=== PATIENT | male | born 1950 | race Caucasian/White ===

== ENCOUNTER 2017-08-15 20:21 | Inpatient (IN) | payer OTHER ==
--- NOTE | 2017-08-15 20:35 | CPEKG ---
Heart Rate: 105 RR Interval: 571 P-R Interval: 164 QRSD Interval: 98 QT Interval: 360 QTC Interval: 476 P [place]: 59 QRS [place]: -84 T Wave [place]: 44 EKG Severity - ABNORMAL ECG - EKG Impression: SINUS TACHYCARDIA EKG Impression: MARKEDLY POSTERIOR QRS AXIS EKG Impression: ABNRM R PROG, CONSIDER ASMI OR LEAD PLACEMENT EKG Impression: BORDERLINE PROLONGED QT INTERVAL EKG Impression: Inferior and lateral ST depression Electronically Signed By: Gregorio Howard 15-Aug-2017 20:41:02
[2017-08-15] MEDS ORDERED: ASPIRIN 81 MG CHEWABLE TAB PO ONE (20:59)
[2017-08-15] MEDS ORDERED: NS 1,000 ML IV ONE (20:59)
--- NOTE | 2017-08-15 21:04 | EDPHY ---
H & P Stated Complaint: sent from PCP due to abnormal EKG, left shoulder pain since July Time Seen by Provider: 08/15/17 20:38 HPI/ROS: CHIEF COMPLAINT: Bloating HISTORY OF PRESENT ILLNESS: Patient is a 67-year-old man who has history of 3 vessel CABG in 2006. His states that he has not seen a doctor since that time and never followed up. He complains that over the last 2-3 months he has had significant bloating and abdominal distention especially after eating. He states that it hurts him when he bends over and makes it difficult to sleep. He states that if he is able to sneeze or he goes to the bathroom and dry heaves that his symptoms improved. He states that he has been having normal nonbloody bowel movements. No diarrhea. No fever. No vomiting. He states the abdominal discomfort is primarily a pressure sensation. He denies chest pain but does sometimes have shoulder pain. He also complains occasionally feeling lightheaded and sweaty when he is having one of these severe episodes. His states that sometimes his blood pressure will drop to 90 systolic during these episodes. He has not had 1 of these episodes today. He saw his primary doctor today who obtained an EKG. The patient has ST depression in his inferior and lateral leads. They could not find any old ones for comparison and so sent him here to the ER for the abnormal EKG. REVIEW OF SYSTEMS: Constitutional: denies: chills, fever, recent illness, recent injury EENTM: denies: blurred vision, double vision, nose congestion Respiratory: denies: cough, shortness of breath Cardiac: denies: chest pain, irregular heart rate, lightheadedness, palpitations Gastrointestinal/Abdominal: See HPI denies: diarrhea, nausea, vomiting, blood streaked stools Genitourinary: denies: dysuria, frequency, hematuria, pain Musculoskeletal: denies: joint pain, muscle pain Skin: denies: lesions, rash, jaundice, bruising Neurological: denies: headache, numbness, paresthesia, tingling, dizziness, weakness Hematologic/Lymphatic: denies: blood clots, easy bleeding, easy bruising Immunologic/allergic: denies: HIV/AIDS, transplant EXAM: GENERAL: Well-appearing, well-nourished and in no acute distress. HEAD: Atraumatic, normocephalic. EYES: Pupils equal round and reactive to light, extraocular movements intact, sclera anicteric, conjunctiva are normal. ENT: TMs normal, nares patent, oropharynx clear without exudates. Moist mucous membranes. NECK: Normal range of motion, supple without lymphadenopathy or JVD. LUNGS: Breath sounds clear to auscultation bilaterally and equal. No wheezes rales or rhonchi. HEART: Regular rate and rhythm without murmurs, rubs or gallops. ABDOMEN: Soft, nontender, normoactive bowel sounds. No guarding, no rebound. No masses appreciated. BACK: No CVA tenderness, no spinal tenderness, step-offs or deformities EXTREMITIES: Normal range of motion, no pitting or edema. No clubbing or cyanosis. NEUROLOGICAL: Cranial nerves II through XII grossly intact. Normal speech, normal gait. 5/5 strength, normal movement in all extremities, normal sensation PSYCH: Normal mood, normal affect. SKIN: Warm, dry, normal turgor, no visible rashes or lesions. Source: Patient Exam Limitations: No limitations - Personal History Current Tetanus/Diphtheria Vaccine: No Current Tetanus Diphtheria and Acellular Pertussis (TDAP): No - Medical/Surgical History Hx Asthma: No Hx Chronic Respiratory Disease: No Hx Diabetes: No Hx Cardiac Disease: Yes Hx Renal Disease: No Hx Cirrhosis: No Hx Alcoholism: No Hx HIV/AIDS: No Hx Splenectomy or Spleen Trauma: No Other PMH: bipass - Family History Significant Family History: No pertinent family hx - Social History Smoking Status: Never smoked Alcohol Use: None Constitutional: Initial Vital Signs Temperature (C) 37.7 C 08/15/17 20:23 Heart Rate 107 H 08/15/17 20:23 Respiratory Rate 18 08/15/17 20:23 Blood Pressure 146/93 H 08/15/17 20:23 O2 Sat (%) 95 08/15/17 20:23 O2 Delivery Mode Room Air Allergies/Adverse Reactions: No Known Allergies Allergy (Unverified 08/15/17 20:26) Home Medications: Medication Instructions Recorded Herbals/Supplements -Info Only 1 ea PO DAILY 08/15/17 Ibuprofen [Motrin (*)] 400 - 600 mg PO Q6H PRN 08/15/17 Multivitamins [Multivitamin (*)] 1 each PO DAILY 08/15/17 Medical Decision Making - Diagnostics EKG Interpretation: An EKG obtained and was read and documented in trace view. Please see trace view for full reading and report. Sinus tachycardia, inferior and lateral ST depression, similar to previous EKG done at the clinic today. Imaging Results: Imaging Impressions Chest X-Ray 08/15/17 21:13 Impression: Nothing acute on this single AP portable x-ray. ED Course/Re-evaluation: 9:15 p.m. the patient's troponin is significantly elevated. I canceled the angio because anticipate he will CT contrast with a catheterization. He is currently asymptomatic. He states his last episode of pain was on Sunday. 9:20 p.m. I discussed the case with Dr. Sal Murillo who will consult and recommends catheterization tomorrow. He recommends heparin admission to the hospital service. 9:30 p.m. I discussed the case with Dr. Valencia who will admit. Differential Diagnosis: Partial list of the Differential diagnosis considered include but were not limited to; acute coronary disease, gastrointestinal disease, obstruction and although unlikely based on the history and physical exam, I also considered ischemia, aneurysm, dissection. Critical Care Time: Critical care time spent by me, Dr. Howard exclusive with this patient was 35 minutes, exclusive of the PA time exclusive of procedures. The organ system that was at risk was cardiovascular and I gave medications, diagnosis, consultation and admission to prevent worsening of the patient's condition - Data Points Laboratory Results: Laboratory Results 08/15/17 20:40 08/15/17 20:40 08/15/17 08/15/17 08/15/17 21:00 20:40 20:40 WBC RBC Hgb Hct MCV MCH MCHC RDW Plt Count MPV Neut % (Auto) Lymph % (Auto) [place] % (Auto) Eos % (Auto) Baso % (Auto) Nucleat RBC Rel Count Absolute Neuts (auto) Absolute Lymphs (auto) Absolute Monos (auto) Absolute Eos (auto) Absolute Basos (auto) Absolute Nucleated RBC Immature Gran % Immature Gran # RBC/WBC/PLT Morphology Platelet Estimate PT INR APTT Sodium 139 mEq/L mEq/L (135-145) Potassium 4.0 mEq/L mEq/L (3.3-5.0) Chloride 104 mEq/L mEq/L (97-110) Carbon Dioxide 24 mEq/l mEq/l (22-31) Anion Gap 11 mEq/L mEq/L (8-16) BUN 16 mg/dL mg/dL (7-23) Creatinine 0.7 mg/dL mg/dL (0.7-1.3) Estimated GFR > 60 Glucose 125 mg/dL H mg/dL (70-100) Calcium 8.8 mg/dL mg/dL (8.5-10.4) Total Bilirubin 0.4 mg/dL mg/dL (0.1-1.4) Conjugated Bilirubin 0.4 mg/dL mg/dL (0.0-0.5) Unconjugated Bilirubin 0.0 mg/dL mg/dL (0.0-1.1) AST 52 IU/L IU/L (17-59) ALT 70 IU/L IU/L (21-72) Alkaline Phosphatase 138 IU/L H IU/L (38-126) POC Troponin I 1.59 ng/mL H ng/mL (0.00-0.08) Troponin I 1.600 ng/mL H ng/mL (0.000-0.034) Total Protein 6.4 g/dL g/dL (6.3-8.2) Albumin 3.6 g/dL g/dL (3.5-5.0) Lipase 39 IU/L IU/L (23-300) 08/15/17 08/15/17 20:40 20:40 WBC 11.65 10^3/uL H 10^3/uL (3.80-9.50) RBC 4.21 10^6/uL L 10^6/uL (4.40-6.38) Hgb 12.9 g/dL L g/dL (13.7-17.5) Hct 38.4 % L % (40.0-51.0) MCV 91.2 fL fL (81.5-99.8) MCH 30.6 pg pg (27.9-34.1) MCHC 33.6 g/dL g/dL (32.4-36.7) RDW 12.8 % % (11.5-15.2) Plt Count 340 10^3/uL 10^3/uL (150-400) MPV 8.9 fL fL (8.7-11.7) Neut % (Auto) 68.8 % % (39.3-74.2) Lymph % (Auto) 15.1 % % (15.0-45.0) [place] % (Auto) 13.7 % H % (4.5-13.0) Eos % (Auto) 1.3 % % (0.6-7.6) Baso % (Auto) 0.6 % % (0.3-1.7) Nucleat RBC Rel Count 0.0 % % (0.0-0.2) Absolute Neuts (auto) 8.02 10^3/uL H 10^3/uL (1.70-6.50) Absolute Lymphs (auto) 1.76 10^3/uL 10^3/uL (1.00-3.00) Absolute Monos (auto) 1.60 10^3/uL H 10^3/uL (0.30-0.80) Absolute Eos (auto) 0.15 10^3/uL 10^3/uL (0.03-0.40) Absolute Basos (auto) 0.07 10^3/uL 10^3/uL (0.02-0.10) Absolute Nucleated RBC 0.00 10^3/uL 10^3/uL (0-0.01) Immature Gran % 0.5 % % (0.0-1.1) Immature Gran # 0.06 10^3/uL 10^3/uL (0.00-0.10) RBC/WBC/PLT Morphology TNP Platelet Estimate TNP PT 13.6 SEC SEC (12.0-15.0) INR 1.02 (0.83-1.16) APTT 27.0 SEC SEC (23.0-38.0) Sodium Potassium Chloride Carbon Dioxide Anion Gap BUN Creatinine Estimated GFR Glucose Calcium Total Bilirubin Conjugated Bilirubin Unconjugated Bilirubin AST ALT Alkaline Phosphatase POC Troponin I Troponin I Total Protein Albumin Lipase Medications Given: Discontinued Medications Aspirin (Aspirin) 324 mg PO EDNOW ONE Stop: 08/15/17 21:00 Last Admin: 08/15/17 21:05 Dose: 243 mg Heparin Sodium (Porcine) (Heparin Injection) 0 unit IVP EDNOW ONE PRN Reason: Protocol Stop: 08/15/17 21:23 Last Admin: 08/15/17 22:35 Dose: 4,100 unit Sodium Chloride (Ns) 1,000 mls @ 0 mls/hr IV EDNOW ONE; Wide Open PRN Reason: Protocol Stop: 08/15/17 21:00 Last Admin: 08/15/17 21:05 Dose: 1,000 mls Heparin Sodium (Porcine) (Heparin 50 Units/Ml (Premix)) 500 mls @ 0 mls/hr IV EDNOW ONE; Per Protocol PRN Reason: Protocol Stop: 08/15/17 21:23 Last Admin: 08/15/17 22:37 Dose: 500 mls Point of Care Test Results: Chemistry 08/15/17 21:00 POC Troponin I 1.59 ng/mL H ng/mL (0.00-0.08) Departure - Departure Disposition: [facility] Inpatient Acute Clinical Impression: Chest pain Qualifiers: Chest pain type: unspecified Qualified Code(s): R07.9 - Chest pain, unspecified Condition: Fair
[2017-08-15] MEDS ORDERED: IOPAMIDOL (ISOVUE 370) 100 ML BTL IV ONE (21:06)
[2017-08-15 21:07] LABS: PLATELET COUNT 340 10^3/uL (150-400)
[2017-08-15 21:16] LABS: INR 1.02 (0.83-1.16); PROTIME(PATIENT) 13.6 SEC (12.0-15.0)
[2017-08-15] MEDS ORDERED: HEPARIN 10,000 UNIT/10 ML MDV (1,000 UNIT/ML) IVP ONE ×2 (21:22→22:10)
[2017-08-15] MEDS ORDERED: HEPARIN/DEXTROSE 500 ML IV ONE (21:22)
[2017-08-15] MEDS ORDERED: HEPARIN 10,000 UNIT/10 ML MDV (1,000 UNIT/ML) IVP PRN (22:10)
[2017-08-15] MEDS ORDERED: ONDANSETRON DISINTEGRATING 4 MG TAB PO PRN (22:13)
[2017-08-15] MEDS ORDERED: ONDANSETRON 4 MG/2 ML VIAL IVP PRN (22:13)
[2017-08-15] MEDS ORDERED: ACETAMINOPHEN 325 MG TAB PO PRN (22:13)
[2017-08-15] MEDS ORDERED: HEPARIN/DEXTROSE 500 ML IV SCH (22:15)
[2017-08-15] MEDS ORDERED: NS 1,000 ML IV SCH (22:15)
--- NOTE | 2017-08-15 22:20 | PDGENHP ---
History and Physical - Chief Complaint chest pressure, bloating - History of Present Illness This is a 67 yo male who has history of 3 vessel CABG in 2006. His states that he has not seen a doctor since that time and never followed up. He complains that over the last 2-3 months he has had significant bloating and abdominal distention especially after eating. He states that it hurts him when he bends over and makes it difficult to sleep. He states that if he is able to sneeze or he goes to the bathroom and dry heaves that his symptoms improved. He states that he has been having normal nonbloody bowel movements. No diarrhea. No fever. No vomiting. He has also been having chest discomfort and Dyspnea and his made him go to a PCP today. At the PCPs office he was found to have ST depression in the inferior and lateral leads and he was sent to the ER. Here the ST depressions are confirmed and troponin is elevated. Cardiology is aware and Heparin has been started. Aspirin was given. He denies fever, leg swelling, focal weakness, diarrhea. : No limitations PMHx: 3 vessel CABG in 2006, CAD Soc Hx: non smoker FmHx: non contributory EKG per above, personally reviewed and interpreted CXR: no acute abnormalities History Information - Allergies/Home Medication List Allergies/Adverse Reactions: No Known Allergies Allergy (Unverified 08/15/17 20:26) Home Medications: Herbals/Supplements -Info Only 1 ea PO DAILY 08/15/17 [Last Taken 08/14/17] Ibuprofen [Motrin (*)] 400 - 600 mg PO Q6H PRN 08/15/17 [Last Taken 08/15/17 09: 00] Multivitamins [Multivitamin (*)] 1 each PO DAILY 08/15/17 [Last Taken 08/15/17] I have personally reviewed and updated: medical history, social history - Social History Smoking Status: Never smoked Alcohol Use: None Review of Systems Review of Systems: ROS: 10pt was reviewed & negative except for what was stated in HPI & below Physical Exam Physical Exam: Temp Pulse Resp BP Pulse Ox 37.7 C 102 H 20 135/83 H 94 08/15/17 20:23 08/15/17 21:08 08/15/17 21:08 08/15/17 21:08 08/15/17 21:08 Constitutional: no apparent distress Eyes: PERRL, EOMI Ears, Nose, Mouth, Throat: moist mucous membranes, hearing normal, No dry mucous membranes Cardiovascular: regular rate and rhythym, No edema Respiratory: no respiratory distress, no rales or rhonchi, clear to auscultation Gastrointestinal: normoactive bowel sounds, soft, non-tender abdomen Skin: warm Musculoskeletal: full muscle strength Neurologic: AAOx3 Psychiatric: interacting appropriately, not anxious, not encephalopathic Lymph, Heme, Immunologic: No petechiae Lab Data & Imaging Review 08/15/17 20:40 08/15/17 20:40 WBC 11.65 10^3/uL (3.80-9.50) H 08/15/17 20:40 RBC 4.21 10^6/uL (4.40-6.38) L 08/15/17 20:40 Hgb 12.9 g/dL (13.7-17.5) L 08/15/17 20:40 Hct 38.4 % (40.0-51.0) L 08/15/17 20:40 MCV 91.2 fL (81.5-99.8) 08/15/17 20:40 MCH 30.6 pg (27.9-34.1) 08/15/17 20:40 MCHC 33.6 g/dL (32.4-36.7) 08/15/17 20:40 RDW 12.8 % (11.5-15.2) 08/15/17 20:40 Plt Count 340 10^3/uL (150-400) 08/15/17 20:40 MPV 8.9 fL (8.7-11.7) 08/15/17 20:40 Neut % (Auto) 68.8 % (39.3-74.2) 08/15/17 20:40 Lymph % (Auto) 15.1 % (15.0-45.0) 08/15/17 20:40 [place] % (Auto) 13.7 % (4.5-13.0) H 08/15/17 20:40 Eos % (Auto) 1.3 % (0.6-7.6) 08/15/17 20:40 Baso % (Auto) 0.6 % (0.3-1.7) 08/15/17 20:40 Nucleat RBC Rel Count 0.0 % (0.0-0.2) 08/15/17 20:40 Absolute Neuts (auto) 8.02 10^3/uL (1.70-6.50) H 08/15/17 20:40 Absolute Lymphs (auto) 1.76 10^3/uL (1.00-3.00) 08/15/17 20:40 Absolute Monos (auto) 1.60 10^3/uL (0.30-0.80) H 08/15/17 20:40 Absolute Eos (auto) 0.15 10^3/uL (0.03-0.40) 08/15/17 20:40 Absolute Basos (auto) 0.07 10^3/uL (0.02-0.10) 08/15/17 20:40 Absolute Nucleated RBC 0.00 10^3/uL (0-0.01) 08/15/17 20:40 Immature Gran % 0.5 % (0.0-1.1) 08/15/17 20:40 Immature Gran # 0.06 10^3/uL (0.00-0.10) 08/15/17 20:40 RBC/WBC/PLT Morphology TNP 08/15/17 20:40 Platelet Estimate TNP 08/15/17 20:40 PT 13.6 SEC (12.0-15.0) 08/15/17 20:40 INR 1.02 (0.83-1.16) 08/15/17 20:40 APTT 27.0 SEC (23.0-38.0) 08/15/17 20:40 Sodium 139 mEq/L (135-145) 08/15/17 20:40 Potassium 4.0 mEq/L (3.3-5.0) 08/15/17 20:40 Chloride 104 mEq/L (97-110) 08/15/17 20:40 Carbon Dioxide 24 mEq/l (22-31) 08/15/17 20:40 Anion Gap 11 mEq/L (8-16) 08/15/17 20:40 BUN 16 mg/dL (7-23) 08/15/17 20:40 Creatinine 0.7 mg/dL (0.7-1.3) 08/15/17 20:40 Estimated GFR > 60 08/15/17 20:40 Glucose 125 mg/dL (70-100) H 08/15/17 20:40 Calcium 8.8 mg/dL (8.5-10.4) 08/15/17 20:40 Total Bilirubin 0.4 mg/dL (0.1-1.4) 08/15/17 20:40 Conjugated Bilirubin 0.4 mg/dL (0.0-0.5) 08/15/17 20:40 Unconjugated Bilirubin 0.0 mg/dL (0.0-1.1) 08/15/17 20:40 AST 52 IU/L (17-59) 08/15/17 20:40 ALT 70 IU/L (21-72) 08/15/17 20:40 Alkaline Phosphatase 138 IU/L (38-126) H 08/15/17 20:40 POC Troponin I 1.59 ng/mL (0.00-0.08) H 08/15/17 21:00 Troponin I 1.600 ng/mL (0.000-0.034) H 08/15/17 20:40 Total Protein 6.4 g/dL (6.3-8.2) 08/15/17 20:40 Albumin 3.6 g/dL (3.5-5.0) 08/15/17 20:40 Lipase 39 IU/L (23-300) 08/15/17 20:40 Assessment & Plan Assessment: #Acute Coronary Syndrome, NSTEMI #Leukocytosis Plan: Admit Heparin Cards to see TTE and Telemetry Full Code total critical care time is 40 minutes
[2017-08-16 03:17] LABS: PLATELET COUNT 291 10^3/uL (150-400)
[2017-08-16] MEDS ORDERED: LIDOCAINE 1% 300 MG/30 ML SDV ONE (08:53)
[2017-08-16] MEDS ORDERED: fentaNYL 100 MCG/2 ML INJ ONE ×2 (08:54→10:12)
[2017-08-16] MEDS ORDERED: MIDAZOLAM 2 MG/2 ML VIAL ONE ×2 (08:54→10:13)
[2017-08-16] MEDS ORDERED: IOPAMIDOL (ISOVUE 370) 100 ML BTL IV ONE ×2 (08:55→10:10)
--- NOTE | 2017-08-16 08:57 | PDPROPOC ---
Sedation Plan of Care Sedation Plan of Care: vital signs stable, mental status noted, patient educated of risks, benefits, alternatives, patient can tolerate sedation ASA Classification: ASA 2 Planned drugs: fentanyl, midazolam Mallampati Score: Class 2 Mallampati Reference Image: Patient passed 3-3-2 rule?: Yes
--- NOTE | 2017-08-16 09:07 | CPEKG ---
Heart Rate: 90 RR Interval: 667 P-R Interval: 160 QRSD Interval: 96 QT Interval: 396 QTC Interval: 485 P [place]: 71 QRS [place]: -72 T Wave [place]: 229 EKG Severity - BORDERLINE ECG - EKG Impression: SINUS RHYTHM EKG Impression: MARKEDLY POSTERIOR QRS AXIS EKG Impression: BORDERLINE PROLONGED QT INTERVAL EKG Impression: Diffuse inferolateral ST-T changes Electronically Signed By: Sal Murillo 16-Aug-2017 09:23:58
[2017-08-16] MEDS ORDERED: ASPIRIN EC 325 MG TAB PO ONE (09:13)
[2017-08-16] MEDS ORDERED: diphenhydrAMINE 25 MG CAP PO ONE (09:13)
[2017-08-16] MEDS ORDERED: NS 1,000 ML IV ONE ×2 (09:13→13:00)
[2017-08-16] MEDS ORDERED: DIAZEPAM 5 MG TAB PO ONE (09:13)
[2017-08-16] MEDS ORDERED: FAMOTIDINE 20 MG TAB PO ONE (09:13)
--- NOTE | 2017-08-16 09:17 | ECHO ---
[email or web address] [address] [address] Main: [phone] Fax: Transthoracic Echocardiogram Name: LANDY MCMULLEN MR#: [id number] Study Date: 08/16/2017 Study Time: 07:50 AM Date of : 1950 Age: 67 year(s) Height: 170.2 cm (67 in.) Weight: 67.59 kg (149 lb.) BSA: 1.78 m2 Gender: Male Examination: Echo Indication: chest pain; h/o CABG 2006 Image Quality: Adequate Contrast: Requested by: Ivan Valencia BP: 128 mmHg/82 mmHg Heart Rate: Rhythm: Indication: chest pain; h/o CABG 2006 Procedure Staff Food Equipment Service Technician: Shaye Gordillo [facility] Reading Physician: Rodney Velasquez MD Requesting Provider: Conclusions: Normal size left ventricle. Concentric LV hypertrophy. EF is 51 %. The lateral wall is hypokinetic . Small left to right shunt across the interatrial septum noted with color flow Doppler. The mitral valve is normal in appearance and function. Trivial mitral valve regurgitation. The aortic valve is tri-leaflet. Mild aortic cusp calcification is noted. There is no aortic valve regurgitation. No aortic valve stenosis is present. Right ventricular systolic pressure measures 35mmHg. No old studies for comparison. Measurements: Chambers Valvular Assessment AV/MV Valvular Assessment TV/PV Normal Normal Normal Name Value Range Name Value Range Name Value Range Ao Alyssa (MM): 3.7 cm (2.2 cm-3.7 AV Vmax: 1.28 m/s (1 m/s-1.7 TR Vmax: 2.25 mm/s ( - ) cm) m/s) TR PGmax: 20 mmHg ( - ) IVSd (2D): 1.1 cm (0.6 cm-1.1 AV maxP mmHg ( - ) syst. PAP: 35 mmHg ( - ) cm) LVOT Vmax: 1.03 m/s (0.7 m/s-1.1 PV Vmax: 0.99 m/s (0.6 m/s-0.9 LVDd (2D): 5.2 cm (4.2 cm-5.9 m/s) m/s) cm) MV E Vmax: 0.63 m/s ( - ) PV PGmax: 4 mmHg ( - ) LVDs (2D): 4.2 cm (2.1 cm-4 MV A Vmax: 0.54 m/s ( - ) cm) MV E/A: 1.17 ( - ) LVPWd (2D): 1.0 cm (0.6 cm-1 cm) LVEF (BP): 51 % (>=55 %) Patient: LANDY MCMULLEN Study Date: 08/16/2017 Page 1 of 2 07:50 AM RVDd(2D): 3.1 cm (1.9 cm-3.8 cmmm) Continued Measurements: Chambers Valvular Assessment AV/MV Valvular Assessment TV/PV Name Value Name Value Name Value LADs Lon.3 cm MV DecTime: 187 m/s CVP (est.): 15 mmHg LA Area: 18.6 cm2 MV E/E' Septal: 7.40 LA Volume: 47 ml MV E/E' Lateral: 6.10 LA Volume Index: 26.4 ml/m2 TAPSE: 1.7 cm RA Area: 15.0 cm2 Additional Vessels Name Value Ao Ascendin.7 cm Findings: Left Ventricle: Normal size left ventricle. Concentric LV hypertrophy. Low normal left ventricular systolic function. EF is 51 %. Diastolic LV function normal for age. The lateral wall is hypokinetic . Right Ventricle: Normal size right ventricle. Normal RV function. Left Atrium: The left atrium is normal in size. Small left to right shunt across the interatrial septum noted with color flow Doppler. Right Atrium: The right atrium is normal in size. Mitral Valve: The mitral valve is normal in appearance and function. Trivial mitral valve regurgitation. No mitral stenosis is present. Aortic Valve: The aortic valve is tri-leaflet. Mild aortic cusp calcification is noted. There is no aortic valve regurgitation. No aortic valve stenosis is present. Tricuspid Valve: The tricuspid valve appears normal. Trivial to mild tricuspid valve regurgitation. Right ventricular systolic pressure measures 35mmHg. Borderline elevated pumonary artery pressure. Pulmonic Valve: The pulmonic valve is normal in appearance and function. Trivial pulmonic valve regurgitation. Aorta: Normal size aortic root measuring 3.7 cm. Normal size ascending aorta measuring 3.7 cm. IVC: The IVC is dilated. There is less than 50% respiratory excursion. Pericardium: Trivial anterior pericardial effusion. There is pericardial fat. (No Signature Object) Patient: LANDY MCMULLEN Study Date: 08/16/2017 Page 2 of 2 07:50 AM [id number]
--- NOTE | 2017-08-16 09:23 | GCON ---
[f rep st] CONSULTATION DATE OF CONSULTATION: 08/16/2017 CHIEF COMPLAINT: We have been asked by Dr. Valencia to evaluate this patient with an acute coronary syndrome. HISTORY OF PRESENT ILLNESS: The patient is a 67-year-old gentleman with known coronary artery diseas e who presents with an acute coronary syndrome. The patient was in his usual state of health until , when his brother from a myocardial infarction while working out on a rowing machine. At th at time, patient sought cardiology evaluation for risk stratification. He underwent coronary angiogr aphy demonstrating 3-vessel coronary artery disease, and patient underwent 3-vessel CABG at that time . Following his CABG, he has had symptoms of abdominal bloating and nauseous. The patient states he will get the sensation of his abdominal bloating. This would then be followed by sneezing or dry he aves, with resolution of his symptoms. More recently, he has had several episodes of chest discomfor t associated with his abdominal bloating and distention. The first episode occurred on 08/03/2017, w hen he went to bed. At that time, he started to experience discomfort radiating across the back of t he shoulders and into his arms. This discomfort lasted throughout the evening and into the next morn ing. The patient also reports another significant episode of discomfort on Father's Day, when he manju t out to clean the gutters. The patient also reports several episodes of syncope associated with his abdominal bloating and distention. These episodes are associated with a hot flushed sensation, as w ell as sweating. The patient denies symptoms of palpitations. No history of orthopnea or PND. PAST MEDICAL HISTORY: 1. Coronary artery disease, status post CABG x3 in 2006. 2. Hyperlipidemia managed with supplements. MEDICATIONS: None. ALLERGIES: No known drug allergies. SOCIAL HISTORY: The patient is . He does not smoke. He remained active riding a bicycle up until last year. FAMILY HISTORY: Notable for coronary artery disease. REVIEW OF SYSTEMS: A 10-point review of systems is negative except as noted in HPI. PHYSICAL EXAM: GENERAL: Patient is resting comfortably in bed. He does not appear to be in acute d istress at this time. VITALS: Temperature is afebrile, pulse is 94, blood pressure 123/76, respirat ory rate 18, SaO2 94% on room air. HEENT: Normocephalic, atraumatic. Extraocular muscles intact. NECK: No JVD. No bruits. LUNGS: Clear to auscultation bilaterally. CARDIOVASCULAR: Regular rate and rhythm. S1, S2. Grade 2/6 holosystolic murmur is noted at the apical region. ABDOMEN: Eviden ce of ventral hernia. Evidence of distention. Normoactive bowel sounds. No hepatosplenomegaly note d. The aorta cannot be adequately palpated. EXTREMITIES: No clubbing, cyanosis, or edema. SKIN: No evidence of rash. NEURO: Patient is awake, alert, and oriented x3. LABORATORY DATA: White blood cell count is 9.37, hemoglobin 11.9, hematocrit 35.3, platelet count 29 1. Sodium 139, potassium 4.0, chloride 104, CO2 24, BUN 16, creatinine 0.7. Troponin 1.6, 1.6, 1.7. LDL cholesterol is 104, alkaline phosphatase is elevated at 138. INR is 1.02. EKG demonstrates sinus rhythm, normal axis, normal intervals. ST-segment depression in the inferior and lateral leads. ASSESSMENT AND PLAN: This patient is a 67-year-old gentleman with: 1. Acute coronary syndrome. Patient has known coronary artery disease and is status post 3-vessel b ypass grafting surgery in 2006. He presents with a several-week history of shoulder and arm discomfo rt associated with abdominal bloating and nauseousness, suggestive of an acute coronary syndrome. Hi s EKG demonstrates inferolateral ST and T-wave changes. His troponin is elevated. Reviewed risks an d benefits of cardiac catheterization with patient and his to further evaluate his condition. W e will arrange to have this performed. 2. Hyperlipidemia. Patient has a history of hyperlipidemia. His LDL cholesterol is 104 on herbal s upplements. Discussed the importance of statin therapy in treating LDL cholesterol. We will plan on starting Lipitor 40 mg daily. /[id number]
[2017-08-16] MEDS ORDERED: HEPARIN 10,000 UNIT/10 ML MDV (1,000 UNIT/ML) ONE (09:40)
--- NOTE | 2017-08-16 09:51 | PDHPUP ---
History & Physical Update H&P update statement: This history and physical update is based on an assessment of the patient which was completed after admission or registration (within 24 hours), but prior to the surgery/procedure. H&P update: H&P reviewed & patient examined, no change in patient's condition since H&P completed
[2017-08-16] MEDS ORDERED: BIVALIRUDIN 250 MG/5 ML VIAL IV ONE (10:10)
[2017-08-16] MEDS ORDERED: NITROGLYCERIN 1,500 MCG/15 ML VIAL MISC ONE (10:27)
[2017-08-16] MEDS ORDERED: EPINEPHrine 1 MG/10 ML SYR IVP ONE (10:27)
[2017-08-16] MEDS ORDERED: ATROPINE SULFATE 1 MG/10 ML SYR ONE (10:36)
[2017-08-16] MEDS ORDERED: CLOPIDOGREL BISULFATE 75 MG TAB ONE (11:15)
[2017-08-16] MEDS ORDERED: CLOPIDOGREL BISULFATE 75 MG TAB PO ONE (11:31)
[2017-08-16] MEDS ORDERED: ATROPINE SULFATE 1 MG/10 ML SYR IVP PRN (11:31)
[2017-08-16] MEDS ORDERED: TEMAZEPAM 15 MG CAP PO PRN (11:31)
[2017-08-16] MEDS ORDERED: LORazepam 2 MG/ML INJ IVP PRN (11:31)
[2017-08-16] MEDS ORDERED: NITROGLYCERIN 0.4 MG BTL SL PRN (11:31)
--- NOTE | 2017-08-16 11:54 | CPIP ---
[f rep st] INVASIVE CARDIAC PROCEDURE DATE OF PROCEDURE: 08/16/2017 PROCEDURE: 1. Coronary angiography. 2. Bypass graft angiography. 3. Left ventriculography. 4. Stenting of saphenous vein graft to right coronary artery. INDICATION: Acute coronary syndrome with elevated troponin. ACCESS: Patient was prepped and draped in a sterile fashion. 1% lidocaine was used to anesthetize t he right inguinal region. A 6-Bahamian introducer sheath was placed selectively into the right common femoral artery via modified Seldinger technique. CORONARY ANGIOGRAPHY: A 6-Bahamian JL4 was advanced to left main coronary artery and images obtained. The left main coronary artery bifurcated into an LAD and circumflex coronary arteries. The left sohail n coronary artery appeared free of any significant disease. The left anterior descending coronary ar gianfranco was 100% occluded in the proximal segment. The remainder of the vessel was being fed by patent JAMISON to LAD graft. The circumflex coronary artery was a large vessel but was nondominant. Circumfle x coronary artery was diffusely diseased. The circumflex coronary artery had a discrete 40% stenosis in the proximal segment as well as a 40% to 50% stenosis in the mid segment. The OM3 coronary arter y is the largest of the OM branches. The OM3 had a discrete 80% stenosis present. The distal vessel is being filled by a patent saphenous vein graft to OM artery. A 6-Bahamian JR4 was advanced to the r ight coronary artery and images obtained. The right coronary artery was diffusely diseased. The rig ht coronary artery was 100% occluded in the mid vessel. BYPASS GRAFT ANGIOGRAPHY: A 6-Bahamian JR4 was used to engage the JAMISON to LAD graft. The JAMISON to LAD graft was widely patent. In the [place] LAD just distal to the insertion of the bypass graft there wa s a 60% to 70% stenosis present. The 6-Bahamian JR4 was used to engage the saphenous vein graft to OM artery. The saphenous vein graft to OM artery is widely patent. In the distal OM artery there was s equential 70% to 80% stenosis present. The vessel here was relatively small and probably not a good candidate for intervention. A 6-Bahamian JR4 was used to engage the saphenous vein graft to right ralph nary artery. It did not engage the right coronary artery well and was exchanged for an RCB catheter. The RCB catheter was used to engage the saphenous vein graft to right coronary artery. The sapheno us vein graft to right coronary artery had a mid 85% stenosis present. LEFT VENTRICULOGRAPHY: A 6-Bahamian pigtail catheter was advanced to the left ventricle and images obt ained. Left ventricle is normal in size with reduced systolic function. Estimated ejection fraction was 45% to 50%. The anterolateral wall appeared to be akinetic. The inferior wall appeared to be h ypokinetic. Percutaneous coronary intervention of the saphenous vein graft to right coronary artery. A 6-Bahamian multipurpose catheter was advanced to the saphenous vein graft to right coronary artery and images ob tained. Angiography confirmed the presence of high-grade disease involving the mid graft portion. A filter wire was placed in the distal vessel and deployed. Followup angiography demonstrated ZULMA-3 flow. A 3.0 x 16 Synergy drug-eluting stent was used to dilate the lesion. Followup angiography demo nstrated ZULMA-3 flow. There is incomplete stent expansion in the distal portion of the stent at the site of a vein valve. The stent was postdilated with a 3.5 x 8 Emerge balloon in this section. Foll owup angiography demonstrated ZULMA-3 flow. No residual stenosis. COMPLICATIONS: None. CONCLUSIONS: 1. Three vessel coronary artery disease. 2. Patent JAMISON to LAD graft with disease in the distal left anterior descending coronary artery afte r the insertion of the bypass graft. 3. Patent saphenous vein graft to OM3 coronary artery with disease in the OM3 coronary artery distal to the insertion of the bypass graft. 4. 85% stenosis in the mid saphenous vein graft to right coronary artery. 5. Status post successful stenting of the saphenous vein graft to right coronary artery. /[id number]/MODL
--- NOTE | 2017-08-16 12:20 | CPEKG ---
Heart Rate: 85 RR Interval: 706 P-R Interval: 160 QRSD Interval: 98 QT Interval: 408 QTC Interval: 486 P [place]: 68 QRS [place]: -61 EKG Severity - BORDERLINE ECG - EKG Impression: SINUS RHYTHM EKG Impression: MARKEDLY POSTERIOR QRS AXIS EKG Impression: BORDERLINE PROLONGED QT INTERVAL Electronically Signed By: Sal Murillo 16-Aug-2017 13:44:20
--- NOTE | 2017-08-16 14:05 | ASMTCASEMG ---
Living Arrangements What is your living Answers: With Spouse arrangement? Who do you live with? Type Of Residence What kind of residence do Answers: House you live in? Discharge Plan Comments Coordination Status Comments Notes: Pts case discussed in tx rounds. Pt is a 67 y/o man admitted for chest pain. Pt went to the warehouse general lab[facility] today. Pt will most likely d/c without any needs. No therapies ordered at this time. CM available for changes. Plan: Independent Date Signed: 08/16/2017 02:05 PM Electronically Signed By:HATTIE Reed
--- NOTE | 2017-08-16 21:10 | HOSPPROG ---
Hospitalist Progress Note Assessment/Plan: DIAGNOSES: -acute coronary syndrome with an NSTEMI troponins 1.6 -coronary stent placed in angiography lab today -plan will be for outpatient stress test in the near future to assess other milder stenoses further -chronic postprandial abdominal pain and bloating with dry heaves occurring on a daily basis. * Etiology of this is uncertain but I would be concerned about the possibility of arterial insufficiency to the gut * Would recommend considering CT angiography after he finished his cardiac assessments; if this it does not find an etiology may need to have assessment for gastric outlet abnormalities or other causes and a GI consult may be very useful Seen by me on hospitals rounds and multidisciplinary rounds I reviewed the patient's progress and procedure results in detail with Dr. Len Velasquez today SUBJECTIVE: No more angina type pains, no shortness of breath, no palpitations I did review with him his digestive symptoms. He tells me that for years now since around 2006 he has had on a regular basis postprandial symptoms of pain and bloating with nausea and dry heaves. This is gradually gotten worse over the last few months and he is having it daily. There has been a couple of episodes that been very severe and these probably triggered his angina symptoms that led to his current cardiac assessment. He has never really had much assessment or attempts at treatment for these symptoms. He has noticed that as he eats much smaller meals this symptoms are a bit less severe on average OBJECTIVE Vitals reviewed: Stable without fever [employer], my review: All sinus Exam: alert oriented skin warm dry color ok resps not labored lungs clear BSs heart regular abd soft nondistended nontender, bowel sounds present limbs warm, no edema iv site ok Laboratory data: Troponins continued significant elevation unchanged from last night Stable CBC Hemoglobin A1c 6.3 Objective: Vital Signs Temp Pulse Resp BP Pulse Ox 37.1 C 94 16 118/85 H 94 08/16/17 20:00 08/16/17 20:00 08/16/17 20:00 08/16/17 20:00 08/16/17 20:00 Laboratory Results 08/16/17 03:06 08/15/17 08/16/17 08/17/17 06:59 06:59 06:59 Intake Total 174 1046 Balance 174 1046 PT 13.6 SEC (12.0-15.0) 08/15/17 20:40 INR 1.02 (0.83-1.16) 08/15/17 20:40 - Time Spent With Patient Time Spent with Patient: greater than 35 minutes Time Spent with Patient: Greater than 35 minutes spent on this patients care, greater than 50% of time spent counseling, educating, and coordinating care regarding the above mentioned plan. ICD10 Worksheet Patient Problems: Problems Problem Status Onset Chest pain Acute
[2017-08-17 05:30] LABS: PLATELET COUNT 304 10^3/uL (150-400)
--- NOTE | 2017-08-17 08:40 | CPEKG ---
Heart Rate: 107 RR Interval: 561 P-R Interval: 160 QRSD Interval: 98 QT Interval: 320 QTC Interval: 427 P [place]: 69 QRS [place]: 251 T Wave [place]: -71 EKG Severity - ABNORMAL ECG - EKG Impression: SINUS TACHYCARDIA EKG Impression: MULTIPLE VENTRICULAR PREMATURE COMPLEXES EKG Impression: PROBABLE LEFT ATRIAL ABNORMALITY EKG Impression: MARKEDLY POSTERIOR QRS AXIS EKG Impression: CONSIDER ANTEROSEPTAL INFARCT EKG Impression: NONSPECIFIC REPOL ABNORMALITY, DIFFUSE LEADS Electronically Signed By: Sal Murillo 20-Aug-2017 02:37:50
[2017-08-17] MEDS ORDERED: ATORVASTATIN CALCIUM 40 MG TAB PO SCH (09:00)
[2017-08-17] MEDS ORDERED: ASPIRIN EC 325 MG TAB PO SCH (09:00)
[2017-08-17] MEDS ORDERED: CLOPIDOGREL BISULFATE 75 MG TAB PO SCH (09:00)
[2017-08-17] MEDS ORDERED: IOPAMIDOL (ISOVUE 370) 100 ML BTL IV ONE (10:16)
--- NOTE | 2017-08-17 10:32 | SOAPPROG ---
[facility] Progress Note Assessment/Plan: 1. ACS - Pt presented with an ACS. He was taken to the cardiac catheterization laboratory were he was found to have [place] 3VD with patent SVG to OM, patent jamison to LAD, and an 85% stenosis of the SVG to RCA. Pt was treated with PCI of the SVG to RCA. 2. Hyperlipidemia - Pt has a long history of hyperlipidemia. He has been managing this with red yeast rice. He was started on lipitor 40 mg daily while in the hospital. He will need follow up FLP and LFTs in 3 months. 3. HTN - Pt denies a history of HTN. His BP has been borderline while in the hospital. Will start lisinopril 5 mg daily for HTN and cardioprotective effects. 4. CAD - Pt has a history of CAD and is s/p CABG x 3 in 2006. He presented with an ACS and was treated with PCI of his SVG to RCA. He has an intermediate grade lesion involving his [place] LAD distal to the insertion of the JAMISON graft. Will obtain a stress test in 2 weeks to evaluate this lesion prior to starting cardiac rehab. Continue secondary prevention with asa, plavix, lisinopril, and lipitor. Will not start BB at this time given BP will probably not tolerate. 08/17/17 10:32 Subjective: No chest pain No orthopnea or PND No groin complications Objective: Vital Signs Temp Pulse Resp BP Pulse Ox 36.7 C 98 16 138/76 H 91 L 08/17/17 04:00 08/17/17 04:00 08/17/17 04:00 08/17/17 04:00 08/17/17 04:00 Laboratory Results 08/17/17 05:22 08/17/17 05:22 08/16/17 08/17/17 08/18/17 05:59 05:59 05:59 Intake Total 1420 Balance 1420 PT 13.6 SEC (12.0-15.0) 08/15/17 20:40 INR 1.02 (0.83-1.16) 08/15/17 20:40 Physical Exam - Physical Exam General Appearance: alert, no apparent distress Respiratory: lungs clear Cardiac/Chest: regular rate, rhythm Extremities: other (No hematoma or echymosis), No pedal edema Neuro/Psych: alert, oriented x 3 ICD10 Worksheet Patient Problems: Problems Problem Status Onset Chest pain Acute
[2017-08-17 11:14] VITALS: BP 148/99
--- NOTE | 2017-08-17 11:38 | PDMN ---
Medical Necessity Medical necessity: Change to IP, as of 08/17/17, per MD; los >2 mn for ongoing management of acute coronary syndrome w/NSTEMI s/p stent, as well as postprandial abdominal pain & bloating w/dry heaves occurring daily; admit for further workup/monitoring & possible GI consult; hx CABG; per progress note & order 08/17/17
--- NOTE | 2017-08-17 19:52 | PDDCSUM ---
Discharge Summary Discharge Summary: DISCHARGE SUMMARY FOLLOW-UP ITEMS: 1. Outpatient cardiac stress test in 2 weeks 2. Repeat fasting lipid panel in 3 months 3. Reassess abdominal symptoms through primary care provider office DATE OF ADMISSION: 08/15/2017 DATE OF DISCHARGE: 08/17/2017 DISCHARGE DIAGNOSES: 1. Acute non ST-elevation myocardial infarction, type 1 2. Chronic abdominal pain CONSULTATIONS: Cardiology PROCEDURES / IMAGING: Cardiac catheterization demonstrating 85% stenosis in the SVG to RCA graft, received PCI with stent, ejection fraction 45-50% with inferior hypokinesis CHIEF COMPLAINT: Acute chest pain SUBJECTIVE: Patient is feeling well at time discharge, he is not experiencing any chest or abdominal pain PHYSICAL EXAM ON DISCHARGE: Systolic blood pressure is 110-140, heart rate 9200, afebrile overnight, satting on room air, alert awake oriented x3, lungs are clear to auscultation bilaterally on inspiration and expiration, heart rhythm is regular without any murmurs rubs or gallops, no significant lower extremity edema LABS ON DISCHARGE: Creatinine 0.7, hemoglobin A1c 6.3%, troponin 1.78 HOSPITAL COURSE BY PROBLEM: The patient presented with acute chest pain most likely secondary to acute non ST-elevation myocardial infarction evidenced by troponin level of 1.78 as well as a culprit lesion in the SVG to RCA graft, notably 85% stenotic. The patient underwent PCI with stent placement. The patient also has some moderate coronary disease in other grafts. He required inpatient admission given his high risk lesion as well as concomitant lesions, and risk of ongoing cardiac ischemia. He was monitored on telemetry, had his troponins trended, and was monitored for any recurrence of any anginal pain. Of note, the patient underwent a CABG in the remote past and has not been on any cardioprotective medications in the interim. Dr. Black has recommended that the patient initiate aspirin, Plavix, statin, JOSE G-inhibitor and that he follow up with an outpatient stress test in 2 weeks. We discussed the initiation of beta-rita, but given the patient's aversion to medications which may alter his exercise performance, the patient would prefer not to initiate on a beta-rita at this time. This will be reassessed with him at [facility]. The patient also has a history of chronic abdominal symptoms and given his underlying coronary disease, there is concern for possible exercise-induced ischemic bowel. I have offered the patient a CT angiogram of the abdomen, but he prefers to hold off on workup of his abdominal symptoms until his cardiac follow-up has been completed. The patient will follow up with his primary care provider for abdominal assessment thereafter. DISCHARGE MEDICATIONS: Please see official discharge medication reconciliation sheet in chart , aspirin 325, Plavix 75, atorvastatin 40, lisinopril 5, sublingual nitroglycerin 0.4 as needed. DISCHARGE INSTRUCTIONS: Please follow up with [facility] within 2 weeks and schedule an outpatient stress test thereafter. TIME SPENT: Greater than 30 minutes were spent on direct patient care, as well as discharge planning and preparation.
[2017-08-18] MEDS ORDERED: LISINOPRIL 5 MG TAB PO SCH (09:00)
== END 2017-08-17 13:41 | disposition home or self-care (01) | DRG 247 ==
LOC: F2W 22:51 → OBSVTOIN 08-17 09:11
PROVIDERS: ADMIT Family Medicine; ATTEND Family Medicine
PROC: 027034Z Dilation of Coronary Artery, One Artery with Drug-eluting Intraluminal Device, Percutaneous Approach (ICD-10-PCS; principal; 2017-08-17)
PROC: B2121ZZ Fluoroscopy of Single Coronary Artery Bypass Graft using Low Osmolar Contrast (ICD-10-PCS; principal; 2017-08-17)
PROC: 4A023N7 Measurement of Cardiac Sampling and Pressure, Left Heart, Percutaneous Approach (ICD-10-PCS; principal; 2017-08-17)
PROC: B2151ZZ Fluoroscopy of Left Heart using Low Osmolar Contrast (ICD-10-PCS; principal; 2017-08-17)
DX: I21.4 Non-ST elevation (NSTEMI) myocardial infarction (principal); I25.810 Atherosclerosis of coronary artery bypass graft(s) without angina pectoris; Z95.1 Presence of aortocoronary bypass graft; E78.5 Hyperlipidemia, unspecified; R10.84 Generalized abdominal pain; R14.0 Abdominal distension (gaseous)
CPT/HCPCS: 84154-90; 84402-90; 84484-PO; 85520-90; C1725; C1760; C1874; C1884; C1887; C9604; G0378; J0461; J0583; J1644; J2250; J3010; Q9967

== ENCOUNTER → 2017-08-27 | Outpatient (CLI) | payer OTHER | LOC: BHFA 13:30 | PROVIDERS: ATTEND Internal Medicine Cardiovascular Disease | DX: I25.10 Atherosclerotic heart disease of native coronary artery without angina pectoris (principal) | CPT/HCPCS: 78452; 93017; A9500 ==

== ENCOUNTER 2017-09-05 07:31 | Observation (INO) | payer OTHER ==
[2017-09-05] MEDS ORDERED: diphenhydrAMINE 25 MG CAP PO ONE ×2 (07:34→07:39)
[2017-09-05] MEDS ORDERED: NS 1,000 ML IV ONE (07:34)
[2017-09-05] MEDS ORDERED: DIAZEPAM 5 MG TAB PO ONE (07:34)
[2017-09-05] MEDS ORDERED: ASPIRIN EC 325 MG TAB PO ONE ×2 (07:34→07:40)
[2017-09-05] MEDS ORDERED: FAMOTIDINE 20 MG TAB PO ONE (07:34)
[2017-09-05] MEDS ORDERED: FAMOTIDINE 20 MG TAB ONE (07:39)
[2017-09-05] MEDS ORDERED: DIAZEPAM 5 MG TAB ONE (07:40)
--- NOTE | 2017-09-05 07:53 | CPEKG ---
Heart Rate: 86 RR Interval: 698 P-R Interval: 164 QRSD Interval: 104 QT Interval: 404 QTC Interval: 484 P [place]: 73 QRS [place]: 258 T Wave [place]: 129 EKG Severity - ABNORMAL ECG - EKG Impression: SINUS RHYTHM EKG Impression: MARKEDLY POSTERIOR QRS AXIS EKG Impression: PROBABLE RIGHT VENTRICULAR HYPERTROPHY EKG Impression: ABNORMAL T, CONSIDER ISCHEMIA, LATERAL LEADS EKG Impression: BORDERLINE PROLONGED QT INTERVAL Electronically Signed By: Paul Jean 06-Sep-2017 22:04:08
[2017-09-05 08:07] LABS: PLATELET COUNT 266 10^3/uL (150-400)
[2017-09-05 08:15] LABS: INR 1.02 (0.83-1.16); PROTIME(PATIENT) 13.6 SEC (12.0-15.0)
[2017-09-05] MEDS ORDERED: MIDAZOLAM 2 MG/2 ML VIAL ONE (09:28)
[2017-09-05] MEDS ORDERED: fentaNYL 100 MCG/2 ML INJ ONE (09:28)
[2017-09-05] MEDS ORDERED: LIDOCAINE 1% 300 MG/30 ML SDV ONE (09:28)
[2017-09-05] MEDS ORDERED: IOPAMIDOL (ISOVUE-370) 150 ML BTL IV ONE (09:29)
--- NOTE | 2017-09-05 09:39 | PDPROPOC ---
Sedation Plan of Care Sedation Plan of Care: vital signs stable, mental status noted, patient educated of risks, benefits, alternatives, patient can tolerate sedation ASA Classification: ASA 3 Planned drugs: fentanyl, midazolam Mallampati Score: Class 2 Mallampati Reference Image: Patient passed 3-3-2 rule?: Yes
--- NOTE | 2017-09-05 09:43 | PDGENHP ---
History & Physical Chief Complaint: Abnormal Stress Test History of Present Illness: Jasiel has a history of prior bypass surgery, recently had an intervention for NSTEMI with stent of SVG to RCA under the care of Dr. Velasquez. He had disease of the LAD distal to the JAMISON insertion and followup outpatient nuclear stress test demonstrated perfsuion deficit in that area. This is considered intermediate to high risk stress test. The patient continues to ahve CCS Class II angina and refuses beta rita. He is here for potential intervention of LAD via JAMISON graft. Pertinent Past, Social, Family History: Coronary artery disease s/p stent and prior CABG, hypertension, myocardial infarction Relevant Physical Exam: Constitutional: Alert, well appearing. Eyes: EOMI. Skin: Warm and dry. Respiratory: Clear to auscultation bilaterally. Cardiovascular: Regular rate and rhythm. Abdomen: Nontender, bowel sounds present. Neurological: Alert and oriented x3. Psychiatric: Mood and affect normal
[2017-09-05] MEDS ORDERED: BIVALIRUDIN 250 MG/5 ML VIAL IV ONE (10:18)
--- NOTE | 2017-09-05 10:24 | PDDXCAT ---
Diagnostic Cath Note - . Date: 09/05/17 [employer] E[employer]ctor: Tim Indication: other (CCS Class II angina, Intermediate to high risk nuclear stress test) - Procedure Access: left groin Procedure: coronary angiography, JAMISON injection, other (coronary catheterization ) - Materials Left Heart Cath size: 7F (JAMISON with side holes) - Findings-Left Heart Catheterization LM: The LM is 3 mm in size. It bifurcates into an LAD and circumflex system. It is free of flow limiting disease. LAD: The LAD is occluded at its origin from the LM. It is 100% obstructed proximally. The remainder of the vessel was being fed by patent JAMISON to LAD graft. (See JAMISON angiography.) LCX: The circumflex is a codominant vessel with diffuse disease, none of which is flow limiting. The OM is occluded. The remainder of the OM is being filled by a patent saphenous vein graft to OM artery. RCA: Angiography was not performed. rSVG: Angiography was not performed. Recent stent to SVG TO RCA also known disease in OM distal to SVG ananstamosis. JAMISON: The JAMISON to LAD graft was widely patent without evidence of obstruction. Distal to the anastamosis was at 70% obstruction of the [place] LAD. Complications: NONE. Estimated blood loss: <50ml Closure method: Angioseal Assessment: The patient had prior bypass surgery. The JAMISON to the LAD is widely patent. Distal to the anastamosis is an 70% obstruction of the [place] LAD that requried stenting. There was a 10% residual stenosis of the lesion post stenting. ZULMA III flow pre and post stent implant. Plan: The patient will remain on dual antiplatelet therapy with Aspirin 325mg for the first month followed by Aspirin 81mg along with Plavix 75mg daily for at least 1 year following drug eluting stent implantation. No elective surgery for the first 3 months. Decisions to stop dual antiplatelet therapy before 1 year should involve our office [facility]. Intervention: A 7 Fr JAMISON guiding catheter with side holes was used for guide catheter support. A 0.014" Intuition Wire was advanced across the lesion in the LAD under direct fluoroscopic and angiographic guidance. The lesion was primarily stented with a 2.5 x 12mm Synergy Drug Eluting Stent. Followup angiography demonstrated ZULMA III flow. Post stent residual stenosis was 10%. Patient Problems: Problems Problem Status Onset Chest pain Acute Chronic Disease Mgmt/Transitional Care Acute
[2017-09-05] MEDS ORDERED: NITROGLYCERIN 1,500 MCG/15 ML VIAL MISC ONE (10:29)
[2017-09-05] MEDS ORDERED: HYDROCODONE/APAP 5/325 TAB PO PRN (11:27)
[2017-09-05] MEDS ORDERED: ATROPINE SULFATE 1 MG/10 ML SYR IVP PRN (11:27)
[2017-09-05] MEDS ORDERED: OXYCODONE/APAP 5/325 TAB PO PRN (11:27)
[2017-09-05] MEDS ORDERED: ONDANSETRON 4 MG/2 ML VIAL IVP PRN (11:27)
[2017-09-05] MEDS ORDERED: NITROGLYCERIN 0.4 MG BTL SL PRN (11:27)
--- NOTE | 2017-09-05 12:57 | CPEKG ---
Heart Rate: 77 RR Interval: 779 P-R Interval: 168 QRSD Interval: 102 QT Interval: 440 QTC Interval: 499 P [place]: 64 QRS [place]: 266 T Wave [place]: 132 EKG Severity - ABNORMAL ECG - EKG Impression: SINUS RHYTHM EKG Impression: LAD, CONSIDER LEFT ANTERIOR FASCICULAR BLOCK EKG Impression: ABNORMAL T, CONSIDER ISCHEMIA, LATERAL LEADS EKG Impression: BORDERLINE PROLONGED QT INTERVAL Electronically Signed By: Paul Jean 06-Sep-2017 22:03:55
[2017-09-06 05:20] LABS: PLATELET COUNT 258 10^3/uL (150-400)
[2017-09-06] MEDS ORDERED: ASPIRIN EC 325 MG TAB PO SCH (09:00)
[2017-09-06] MEDS ORDERED: CLOPIDOGREL BISULFATE 75 MG TAB PO SCH (09:00)
[2017-09-06] MEDS ORDERED: ATORVASTATIN CALCIUM 40 MG TAB PO SCH (09:00)
[2017-09-06 11:07] VITALS: BP 124/82
--- NOTE | 2017-09-06 12:17 | GDS ---
[f rep st] DISCHARGE SUMMARY SUPERVISING NEEDLE MAKER: Dr. Dumont. ADMISSION DIAGNOSES: 1. Chest pressure. 2. Known history of coronary artery disease. 3. Hyperlipidemia. DISCHARGE DIAGNOSES: 1. Coronary artery disease. 2. Status post drug-eluting stent implantation of the proximal LAD via JAMISON graft. 3. Hyperlipidemia. PROCEDURES PERFORMED DURING HOSPITALIZATION: 1. Electrocardiogram. 2. Diagnostic coronary angiogram. 3. Percutaneous coronary intervention of the left anterior descending artery with 2.5 x 12 Synergy D ES implantation. BRIEF HISTORY: Please see H and P. Briefly, the patient is a 67-year-old male with known history of CAD with previous CABG. He recently underwent intervention for a [id number] IL with previous stent into the SVG to the RCA. He was noted at the time to have some mid to distal LAD disease. He recently underwent an outpatient nuclear stress test, showing a perfusion deficit in the anterior wal l. He also reported ongoing chest pressure. Due to this, he was scheduled to undergo a diagnostic h eart catheterization. HOSPITAL COURSE: Patient was admitted through CVC, prepped for procedure, and taken to the cardiac c atheterization lab. Via left femoral axis, Dr. Dumont did diagnostic catheterization of the huslia le ft coronary artery and JAMISON to the LAD. Noted to have a tight lesion just distal to where the JAMISON a nastomosis to the LAD, 70%, percutaneous coronary intervention was performed, where Dr. Tim dale sfully implanted a 2.5 x 12 mm Synergy stent. No apparent complications. Patient was transferred ba to the CVC, and ultimately to the PCU for overnight observation. There, he has been remaining in sinus rhythm with no malignant arrhythmias or pauses. He denies any chest pain, pressure or symptoms suggesting of ischemia. He has been up and walking in the unit without difficulties. PHYSICAL EXAMINATION: Done today. GENERAL APPEARANCE: Medium built, well-groomed male. He is alert and oriented to person, place, time, and situation. Appears to be in no acute distress. VITAL SIGNS: Current vital signs are blood pressure 124/82, heart rate of 90, respirations 16, satu rating 95% on room air, temperature 36.7 degrees Celsius. HEENT: Head is normocephalic. Lips and t ongue are pink and moist, with no signs of cyanosis. Conjunctivae pink. NECK: Trachea is midline, +2 carotid pulses bilateral. No auscultated bruits, no jugular vein distention. RESPIRATORY: Lungs clear to auscultation. No rhonchi, rales or wheezes. No accessory muscle use. No intercostal musc le retraction noted. CARDIAC: Regular rate, regular rhythm, S1, S2, no S3, S4, gallops or rubs note d, 1/6 systolic murmur noted along the left sternal border. ABDOMEN: Soft, nontender, bowel sounds x4 quadrants. No organomegaly, no palpable masses. SKIN: Athalia, warm, dry, no cyanosis, no clubbing , no peripheral edema. VASCULAR: +2 carotids bilateral, +2 radials bilateral, +1 dorsal pedal and p osterior tibial pulses bilateral. Catheter insertion site, left groin site, with no redness, swellin g, drainage, ecchymosis, or hematoma. LABORATORY DATA: Laboratory studies drawn today show WBC of 9.40, hemoglobin of 13.8, hematocrit of 42.0, platelet count of 258, sodium 136, potassium 4.2, chloride 106, CO2 26, BUN 14, creatinine 0.7, glucose 104, calcium 8.7. Fasting lipid panel drawn yesterday showed total cholesterol 167, triglyc erides 74, LDL 96, HDL 56. STUDIES: Diagnostic heart catheterization and percutaneous coronary intervention as mentioned above. This morning's electrocardiogram showed sinus rhythm, leftward axis deviation, borderline inverted T-waves in lateral leads. DISCHARGE DISPOSITION: Patient will be discharged home in stable condition. No lifting more than 10 pounds for the next week. No strenuous activity for the next 2 weeks. DISCHARGE MEDICATIONS: Please see med reconciliation sheet. Note, patient will continue on full str ength aspirin at 325 mg p.o. daily. He will also continue on Plavix at 75 mg p.o. daily. Importance of dual antiplatelet therapy with LESLIE implantation gone over with the patient, and they verbalize un derstanding. Note, patient has refused beta-blockers and has had adverse reaction to lisinopril with hypotension in the past. DISCHARGE INSTRUCTIONS: Post-percutaneous coronary intervention discharge instructions went over wit h the patient and his , including monitoring for signs of infection, activity restrictions, bleed ing precautions and medication compliance. At the time of discharge, patient and verbalized und erstanding of all instructions and have no questions or concerns. The patient's will call to [facility] an appointment for the patient to be seen in the next 7-10 days in our office. I have also notifi ed our office for anticipation of her call. The patient has been told if any problems or concerns co me up post discharge, they are to call our office or return to the hospital. They verbalized underst anding of all discharge instructions. Total time spent on discharge greater than 30 minutes. /[id number]/MODL
== END 2017-09-06 11:45 | disposition home or self-care (01) ==
LOC: FCATH 07:31 → F2W 12:27
PROVIDERS: ADMIT Internal Medicine Cardiovascular Disease; ATTEND Internal Medicine Cardiovascular Disease
PROC: B2151ZZ Fluoroscopy of Left Heart using Low Osmolar Contrast (ICD-10-PCS; principal; 2017-09-05)
PROC: 4A023N7 Measurement of Cardiac Sampling and Pressure, Left Heart, Percutaneous Approach (ICD-10-PCS; principal; 2017-09-05)
PROC: B2111ZZ Fluoroscopy of Multiple Coronary Arteries using Low Osmolar Contrast (ICD-10-PCS; principal; 2017-09-05)
PROC: B2181ZZ Fluoroscopy of Left Internal Mammary Bypass Graft using Low Osmolar Contrast (ICD-10-PCS; principal; 2017-09-05)
PROC: 027034Z Dilation of Coronary Artery, One Artery with Drug-eluting Intraluminal Device, Percutaneous Approach (ICD-10-PCS; principal; 2017-09-05)
DX: I25.119 Atherosclerotic heart disease of native coronary artery with unspecified angina pectoris (principal); E78.5 Hyperlipidemia, unspecified; I25.2 Old myocardial infarction; Z95.1 Presence of aortocoronary bypass graft
CPT/HCPCS: 93005; 93455; C1760; C1769; C1874; C1887; C9604; J0583; J1644; J2250; J3010; Q9967; C9600